=== PATIENT | male | born 2000 | race Caucasian/White ===

== ENCOUNTER 2019-08-10 18:41 | Emergency (ER) | payer MEDICAID, SELFPAY ==
[2019-08-10 18:41] VITALS: BP 157/77; PULSE 106; RESP 16; TEMP 37
[2019-08-10 18:42] VITALS: BP 157/77; PULSE 106; RESP 16; TEMP 37; BMI 26.2
--- NOTE | 2019-08-10 18:57 | ED.DCSUM_ITS ---
- ER Visit Summary Date of Service: 08/10/19 Chief Complaint: [Nosebleed] History of Present Illness: The patient is a 18 M [presents to the emergency department with a nosebleed that started about an hour and a half ago. Patient states that he was studying for an exam when the left side of the nose started to bleed. Patient states that that blood came around the right side of the nose and he was having blood going down the back of his throat. Patient attempted to hold pressure for 20 to 25 minutes at a time and it would not stop bleeding. Patient states that he had a nosebleed for about a half an hour yesterday and also had nosebleeds x2 the day before also starting on the left side of his nose . Patient denies any trauma to his nose. He denies any bleeding abnormalities otherwise. He denies any blood in stool or black tarry stools. Prior to this stretch of nosebleeds over the last several days he really has never had nosebleeds.] Physical Examination: [HEENT-PERRLA, EOMI. Cranial nerves II through XII grossly intact. TMs clear. Mucous membranes moist. No adenopathy. Evaluation of both sides of the nose reveals no source of the bleeding. There is no active bleeding currently. There is no blood down the oropharynx. Cardiovascular-regular rate and rhythm without murmur or ectopy Lungs-clear to auscultation, chest wall stable without crepitus or subcu emphysema Abdomen-normoactive bowel sounds, soft, nontender, no rebound or rigidity, no peritoneal signs. Extremities-intact ?4, normal range of motion, normal pulses, atraumatic] Test Results: [None indicated] Emergency Department Course and Treatment: [Patient was observed in the emergency department for approximately an hour and he had no further bleeding. Patient ambulated in the department without difficulty and no further bleeding. Case was discussed with ear nose and throat physician on-call Dr. Calin Rodriguez who would be happy to see the patient in consultation in the office. Because I do not see a source of the bleeding anteriorly is possible he could have a posterior bleed and recommended following up with your nose and throat.] Treatment Plan: [Follow-up with ENT in 1 to 2 days. Patient advised to hold constant pressure should his nose starts to bleed again. Patient advised to return if the bleeding does not stop after 20 to 30 minutes.] Disposition: [discharged home in stable condition.] Impression: [epistaxis- resolved ] This note was generated with [employer] dictation software. It may contain incorrect words, spelling, and punctuation that were not noted in review of the chart prior to signing ED Disposition - Plan for ED Patient: Instructions: Nosebleed Referrals: Calin Garcia MD [STAFF PHYSICIAN] - 1-2 Days if not [facility] Doctor,Out of [NON-STAFF] -
--- NOTE | 2019-08-10 19:00 | ED.DEP ---
ED Disposition - Plan for ED Patient: Instructions: Nosebleed Referrals: [facility] Doctor,Out of [Primary Care Provider] - Calin Garcia MD [STAFF PHYSICIAN] - 1-2 Days if not improving
== END 2019-08-10 19:57 | disposition home or self-care (01) ==
PROVIDERS: Emergency Provider Emergency Medicine
DX: R04.0 Epistaxis (principal)
CPT/HCPCS: 99282